=== PATIENT | male | born 1975 | race Caucasian/White ===

== ENCOUNTER 2016-12-10 19:33 | Emergency (ER) | payer MEDICAID ==
[~2016-12-10] VITALS: Ht 170.2 cm; Wt 87.5 kg
[2016-12-10 19:44] VITALS: Ht 170.2 cm; Wt 87.5 kg
[2016-12-10] MEDS ORDERED: SOD CHLORIDE 0.9% 500 ML IV STA (21:45)
[2016-12-10 22:35] LABS: ADD SCAN DIFF NO
[2016-12-10 22:37] LABS: BASOPHILS % 0.3 % (0.0-2.0); EOSINOPHILS # 0.1 10^3/ul (0.0-0.5); EOSINOPHILS % 0.8 % (0.0-7.0); HEMATOCRIT 46.4 % (42.0-52.0); HEMOGLOBIN 15.1 g/dl (14.0-18.0); LYMPHOCYTES % 27.7 % (15.0-51.0); MEAN CORPUSCULAR HEMOGLOBIN 30.3 pg (29.0-33.0); MEAN CORPUSCULAR HGB CONC 32.5 g/dl (32.0-37.0); MEAN PLATELET VOLUME 10.5 fl (7.4-10.4); MONOCYTE # 0.6 10^3/ul (0.3-0.9); MONOCYTES % 7.7 % (0.0-11.0); NEUTROPHIL # 4.6 10^3/ul (1.6-7.5); NEUTROPHILS % 63.2 % (39.0-77.0); PLATELET COUNT 204 10^3/UL (140-415); RED BLOOD COUNT 4.99 10^6/ul (4.70-6.10); RED CELL DISTRIBUTION WIDTH 13.2 % (11.5-14.5); WHITE BLOOD COUNT 7.3 10^3/ul (4.8-10.8)
--- NOTE | 2016-12-10 22:53 | RADRPT ---
PROCEDURE: XR CHEST AP PORTABLE CLINICAL INDICATION: Chest pain TECHNIQUE: Single frontal view of the chest COMPARISON: None. FINDINGS: The heart is normal in size. There is mild pulmonary vascular congestion. No consolidation, effusion, or pneumothorax. The osseous structures are unremarkable. IMPRESSION: There is mild pulmonary vascular congestion. No consolidation. RPTAT:PP .Sharan Chavarria MD, MD Date Time Electronically viewed and signed by .Sharan Chavarria MD, MD on 12/10/2016 22:53 .V/
[2016-12-10 22:55] LABS: INR 0.95; PROTIME 12.7 Sec (12.2-14.2)
[2016-12-10 22:56] LABS: PARTIAL THROMBOPLASTIN TIME 30.2 Sec (25.0-35.0)
[2016-12-10 22:59] LABS: ALANINE AMINOTRANSFERASE 45 IU/L (13-69); ALBUMIN/GLOBULIN RATIO 1.78; ALKALINE PHOSPHATASE 85 IU/L (42-121); ANION GAP 16 (8-16); ASPARTATE AMINO TRANSFERASE 42 IU/L (15-46); BILIRUBIN,INDIRECT 0.4 mg/dl (0-1.1); BILIRUBIN,TOTAL 0.4 mg/dl (0.2-1.3); BLOOD UREA NITROGEN 17 mg/dl (7-20); CALCIUM 9.8 mg/dl (8.4-10.2); CARBON DIOXIDE 26 mmol/L (21-31); CHLORIDE 108 mmol/L (97-110); CREATININE 0.84 mg/dl (0.61-1.24); GLUCOSE 108 mg/dl (70-220); POTASSIUM 3.7 mmol/L (3.5-5.1); SODIUM 146 mmol/L (135-144); TOTAL PROTEIN 7.8 g/dl (6.1-8.1)
[2016-12-10 23:07] LABS: B-TYPE NATRIURETIC PEPTIDE 61 PG/ML (0-125)
[2016-12-10 23:19] LABS: TROPONIN-I < 0.012 ng/ml (0.00-0.12)
--- NOTE | 2016-12-10 23:56 | ERD ---
ER Documentation Chief Complaint Date/Time DATE: 12/10/16 TIME: 23:56 Chief Complaint CP for 1 week reporoduceable with palpation HPI This a 41-year-old female comes in with chest pain for 1 week distributed to palpation. Left upper chest wall. No trauma. No fevers no chills. No nausea no vomiting. No other current complaints. Pain mild to moderate intensity ROS All systems reviewed and are negative except as per history of present illness. Medications Home Meds No Active Prescriptions or Reported Meds Allergies Allergies: Coded Allergies: No Known Allergy (Unverified , 12/10/16) PMhx/Soc Medical and Surgical Hx: pt denies Medical Hx, pt denies Surgical Hx History of Surgery: No Anesthesia Reaction: No Hx Neurological Disorder: No Hx Respiratory Disorders: No Hx Cardiac Disorders: No Hx Psychiatric Problems: No Hx Miscellaneous Medical Probl: No (PT DENIES M/S HX.) Hx Alcohol Use: No Hx Substance Use: No Hx Tobacco Use: No Smoking Status: Never smoker Physical Exam Vitals Vital Signs Date Time Temp Pulse Resp B/P Pulse Ox O2 Delivery O2 Flow Rate FiO2 12/10/16 22:07 Nasal Cannula 2 12/10/16 22:07 67 16 137/87 98 Room Air 12/10/16 19:44 99.4 83 16 166/88 98 Physical Exam Const: [] Head: Atraumatic Eyes: Normal Conjunctiva ENT: Normal External Ears, Nose and Mouth. Neck: Full range of motion..~ No meningismus. Resp: Clear to auscultation bilaterally Cardio: Regular rate and rhythm, no murmurs Abd: Soft, non tender, non distended. Normal bowel sounds Skin: No petechiae or rashes Back: No midline or flank tenderness Ext: No cyanosis, or edema Neur: Awake and alert Psych: Normal Mood and Affect Result Diagram: 12/10/16221912/10/162219 Results 24 hrs Laboratory Tests Test 12/10/16 22:20 White Blood Count 7.310^3/ul Red Blood Count 4.9910^6/ul Hemoglobin 15.1g/dl Hematocrit 46.4% Mean Corpuscular Volume 93.0fl Mean Corpuscular Hemoglobin 30.3pg Mean Corpuscular Hemoglobin Concent 32.5g/dl Red Cell Distribution Width 13.2% Platelet Count 06146^3/UL Mean Platelet Volume 10.5fl Neutrophils % 63.2% Lymphocytes % 27.7% Monocytes % 7.7% Eosinophils % 0.8% Basophils % 0.3% Nucleated Red Blood Cells % 0.0/100WBC Neutrophils # 4.610^3/ul Lymphocytes # 2.010^3/ul Monocytes # 0.610^3/ul Eosinophils # 0.110^3/ul Basophils # 0.010^3/ul Nucleated Red Blood Cells # 0.010^3/ul Prothrombin Time 12.7Sec Prothrombin Time Ratio 1.0 INR International Normalized Ratio 0.95 Activated Partial Thromboplast Time 30.2Sec Sodium Level 146mmol/L Potassium Level 3.7mmol/L Chloride Level 108mmol/L Carbon Dioxide Level 26mmol/L Anion Gap 16 Blood Urea Nitrogen 17mg/dl Creatinine 0.84mg/dl Glucose Level 108mg/dl Calcium Level 9.8mg/dl Total Bilirubin 0.4mg/dl Direct Bilirubin 0.00mg/dl Indirect Bilirubin 0.4mg/dl Aspartate Amino Transf (AST/SGOT) 42IU/L Alanine Aminotransferase (ALT/SGPT) 45IU/L Alkaline Phosphatase 85IU/L Troponin I < 0.012ng/ml B-Type Natriuretic Peptide 61PG/ML Total Protein 7.8g/dl Albumin 5.0g/dl Globulin 2.80g/dl Albumin/Globulin Ratio 1.78 Current Medications Medications (Trade) Dose Ordered Sig/Glenn Route PRN Reason Start Time Stop Time Status Last Admin Dose Admin Sodium Chloride (NS) 500 ml @ 500 mls/hr Q1H STAT IV 12/10/16 21:45 12/10/16 22:44 DC 12/10/16 22:18 Procedures/MDM EKG: Rate/Rhythm: Normal Sinus Rhythm QRS, ST, T-waves: No changes consistent w/ acute ischemia Impression: No evidence of ischemia or arrhythmia Chest X-ray 1V Interpreted by me: Soft Tissue: No acute abnormalities Bones: No acute abnormalities Mediastinum/Cardiac Silhouette/Lungs: No acute abnormalities Patient's thoracic symptoms have stabilized while in the department and are stable for outpatient follow up. Exam and work up not consistent w/ ischemia, arrhythmia, PE or dissection. Symptomology consistent with costochondritis. However patient has been instructed to follow with outpatient cardiology. Return immediately for any return of chest pain. Patient currently chest pain-free at this time. No other current issues. No risk factors. Departure Diagnosis: Primary Impression: Chest pain Chest pain type: unspecified Qualified Code: R07.9 - Chest pain, unspecified type Condition: Stable KEV BUI Dec 10, 2016 23:56
[2016-12-11] MEDS ORDERED: ASPI-664 PO (00:08)
[2016-12-11 00:16] VITALS: BP 130/72; PULSE 74; RESP 16
== END 2016-12-11 00:23 | disposition home or self-care (01) ==
LOC: E/R 19:33
DX: R07.89 Other chest pain (principal); R40.2142 Coma scale, eyes open, spontaneous, at arrival to emergency department; R40.2252 Coma scale, best verbal response, oriented, at arrival to emergency department; R40.2362 Coma scale, best motor response, obeys commands, at arrival to emergency department
CPT/HCPCS: 36415; 71010; 80053; 83880; 84484; 85025; 85610; 85730; 93005; J7040; Z7502